=== PATIENT | male | born 1970 | race Caucasian/White ===

== ENCOUNTER 2016-11-03 08:28 | Emergency (ER) | payer MEDICAID | END 2016-11-03 09:12 | disposition left against medical advice (07) | LOC: ED 09:06 | DX: M79.672 Pain in left foot (principal); Z53.21 Procedure and treatment not carried out due to patient leaving prior to being seen by health care provider ==

== ENCOUNTER 2016-11-17 00:10 | Emergency (ER) | payer MEDICAID ==
[~2016-11-17] VITALS: Ht 182.9 cm; Wt 80.0 kg
[2016-11-17] MEDS ORDERED: KETOROLAC 30 MG/1 ML IM ONE (01:00)
[2016-11-17 02:49] VITALS: BP 138/92
== END 2016-11-17 02:51 | disposition home or self-care (01) ==
LOC: ED 02:45
DX: G89.29 Other chronic pain (principal); M25.552 Pain in left hip; I10 Essential (primary) hypertension
CPT/HCPCS: 36415; 73502; 85025; 85651; 86140; 96372; 99285; J1885